=== PATIENT | male | born 1975 | race Caucasian/White ===

== ENCOUNTER 2023-11-10 08:03 | Emergency (ER) | payer OTHER, SELFPAY ==
--- NOTE | 2023-11-10 08:08 | ED.URI ---
HPI - URI/Sore Throat General Chief Complaint: Upper Respiratory Infection Stated Complaint: sinus infection Time Seen by Provider: 11/10/23 08:08 Source: patient Mode of arrival: ambulatory Limitations: no limitations History of Present Illness HPI Narrative: Nemesio is a 48-year-old male patient presenting to the clinic today with complaints of possible sinus infection x2 days. He reports he is has green nasal drainage, cough, congestion, headache, sinus pressure, body aches, and feeling feverish. He denies any chest pain or shortness of breath. He currently works as a teacher at [employer] MD elicited complaint: fever, cough, rhinorrhea, nasal congestion and sinus pain Related Data Home Medications Medication Instructions Recorded Confirmed cetirizine 10 mg capsule (Zyrtec) 10 mg PO DAILY 03/30/22 11/10/23 Allergies Allergy/AdvReac Type Severity Reaction Status Date / Time amoxicillin Allergy Unknown Unknown Verified 11/10/23 08:16 citalopram [From Celexa] AdvReac Mild Insomnia Verified 11/10/23 08:16 Review of Systems Review of Systems: Pertinent positives per HPI. Patient denies any rash, visual changes, dizziness, shortness of breath, chest pain, palpitations, nausea, vomiting, diarrhea, constipation, abdominal pain, or any urinary issues. 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 There is no relevant family history pertinent to the patient complaint. Exam Narrative: General: Well-developed, well nourished, in no apparent distress Head: Normocephalic, atraumatic Eyes: Pupils equally round and reactive to light bilaterally, EOM intact, sclera and conjunctive clear, no discharge, lids normal Ears: TMs intact and congested, ear canals clear, no drainage, grossly hearing normal. Nose: Nares patent, clear nasal discharge, no inflammation, no sinus tenderness. Mouth: Oral pharynx without lesions or masses, good dentition, MMM. Neck: Supple, trachea midline, no enlargement of anterior or posterior cervical nodes, no thyroid masses or goiter palpable. Cardio: Regular rate and rhythm, s1 and s2 normal, no murmur appreciated. Resp: Clear to auscultation bilaterally, no rhonchi, rales, wheezing or rubs Course Course Emergency Course: Portions of this record may have been created with voice recognition software. Level of Care: Express Care Visit Vital Signs Vital signs: Vital Signs Temperature 37.1 C 11/10/23 08:15 Pulse Rate 80 11/10/23 08:15 Respiratory Rate 18 11/10/23 08:15 Blood Pressure 143/85 H 11/10/23 08:15 Pulse Oximetry 100 11/10/23 08:15 Oxygen Delivery Room Air 11/10/23 08:15 Temperature 37.1 C 11/10/23 08:15 Pulse Rate 80 11/10/23 08:15 Respiratory Rate 18 11/10/23 08:15 Blood Pressure 143/85 H 11/10/23 08:15 Pulse Oximetry 100 11/10/23 08:15 Oxygen Delivery Room Air 11/10/23 08:15 Vital signs reviewed MDM - URI/Sore Throat MDM Narrative Medical decision making narrative:
[2023-11-10 08:15] VITALS: BP 143/85; PULSE 80; RESP 18; TEMP 37.1; O2SAT 100
== END 2023-11-10 08:32 | disposition home or self-care (01) ==
PROVIDERS: Emergency Provider Nurse Practitioner Family
DX: U07.1 COVID-19 (principal); F17.220 Nicotine dependence, chewing tobacco, uncomplicated; E78.5 Hyperlipidemia, unspecified; K21.9 Gastro-esophageal reflux disease without esophagitis
CPT/HCPCS: 87426; 99212; G0463

== ENCOUNTER 2023-12-05 02:17 | Day surgery (SDC) | payer OTHER, SELFPAY ==
[2023-11-13 13:41] VITALS: BMI 29.4
[2023-12-05 06:55] VITALS: BP 131/83; PULSE 78; RESP 16; TEMP 36.3; O2SAT 99; BMI 29.2
[2023-12-05] MEDS: LACTATED RINGERS 1,000 ML 150 ML IV CONT (07:21)
--- NOTE | 2023-12-05 07:36 | P.HP_ITS ---
History of Present Illness History of Present Illness Consent: Risks, benefits, and alternatives have been discussed and questions answered. Patient agrees to proceed with procedure. Chief complaint: neoplasm screening Narrative: Nemesio Blue is a 48 year old male here for screening colonoscopy, had one in his 20's because of hemorrhoids Review of Systems Review of Systems: All systems reviewed & are unremarkable except as noted in HPI and below PMFSH Past Medical History Medical History (Updated 12/05/23 @ 07:39 by Emerson Ornelas MD) Anxiety Colon cancer screening Depression Dyslipidemia GERD (gastroesophageal reflux disease) NICOLA (obstructive sleep apnea) Seasonal allergies Surgical History Surgical History History of appendectomy (1997) Family History Family History Father Heart disease Social History Social History Years smoked: 30 Smoking status: Never smoker Tobacco type: smokeless tobacco Smokeless tobacco user: chewing tobacco Alcohol intake: current Drinks per week: 5 Alcohol use details: beer Substance use: never Substance use type: does not use Living arrangements: with family Occupation/Education: occupation 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[id number] Spiritual care concerns: No Meds Home Medications and Allergies Home Medications Medication Instructions Recorded Confirmed Type cetirizine 10 mg capsule (Zyrtec) 10 mg PO DAILY 03/30/22 12/05/23 History pantoprazole 40 mg tablet,delayed 40 mg PO QAM #90 tabs 10/08/23 12/05/23 Rx release (Protonix) paroxetine HCl 20 mg tablet 20 mg PO DAILY #90 tabs 10/08/23 12/05/23 Rx Allergies Allergy/AdvReac Type Severity Reaction Status Date / Time amoxicillin Allergy Unknown Unknown Verified 12/05/23 07:03 citalopram [From Celexa] AdvReac Mild Insomnia Verified 12/05/23 07:03 Vital Signs Vital Signs - 24 hr 12/05/23 06:55 Temperature 97.3 F L Pulse Rate 78 Respiratory Rate 16 Blood Pressure 131/83 Pulse Oximetry 99 Oxygen Delivery Room Air Exam Const: General: comfortable and no acute distress HENMT: Face/Nose/Sinus: Normal nares present Eyes: General: appearance normal, both eyes and all related structures Neck: Neck: no JVD Resp: Auscultation: clear to auscultation bilaterally Cardio: Rate: regular rate Rhythm: regular rhythm GI: Inspection: non-distended GI Palp: Yes Soft to palpation Skin: General skin exam: normal color Neuro: General: gait normal Speech: normal speech Extrem: General: normal to inspection Psych: Mental Status: mental status grossly normal Assessment and Plan Assessment and plan (1) Colon cancer screening: Code(s): Z12.11 - Encounter for screening for malignant neoplasm of colon Status: Acute Assessment and Plan: colonoscopy
--- NOTE | 2023-12-05 07:44 | P.PNAN_ITS ---
Anes - Initial Pre Proc Eval Procedure: Operation Date: 12/05/23 08:00 Proposed Procedures p Screening Colonoscopy - Emerson Ornelas MD Date/Time: 12/05/23 07:44 Surgeon: Emerson Ornelas MD Pre Op Diagnosis: neoplasm screening Patient Data Age: 48 Gender: M Height: 1.78 m Weight: 92.5 kg Last Vital Signs Temp 97.3 F L 12/05/23 06:55 Pulse 78 12/05/23 06:55 Resp 16 12/05/23 06:55 BP 131/83 12/05/23 06:55 Pulse Ox 99 12/05/23 06:55 O2 Del Method Room Air 12/05/23 06:55 Allergies Allergy/AdvReac Type Severity Reaction Status Date / Time amoxicillin Allergy Unknown Unknown Verified 12/05/23 07:03 citalopram [From Celexa] AdvReac Mild Insomnia Verified 12/05/23 07:03 Home Medications Medication Instructions Recorded Confirmed Type cetirizine 10 mg capsule (Zyrtec) 10 mg PO DAILY 03/30/22 12/05/23 History pantoprazole 40 mg tablet,delayed 40 mg PO QAM #90 tabs 10/08/23 12/05/23 Rx release (Protonix) paroxetine HCl 20 mg tablet 20 mg PO DAILY #90 tabs 10/08/23 12/05/23 Rx Patient hx anesthesia problems: none Family hx anesthesia problems: none Results Review: All pre-operative results and documents have been reviewed as part of the pre- operative evaluation. ON LICENSE OF [facility] Past Medical History Medical History Anxiety Colon cancer screening Depression Dyslipidemia GERD (gastroesophageal reflux disease) NICOLA (obstructive sleep apnea) Seasonal allergies Surgical History Surgical History History of appendectomy (1997) Family History Family History Father Heart disease Social History Social History Years smoked: 30 Smoking status: Never smoker Tobacco type: smokeless tobacco Smokeless tobacco user: chewing tobacco Alcohol intake: current Drinks per week: 5 Alcohol use details: beer Substance use: never Substance use type: does not use Living arrangements: with family Occupation/Education: occupation 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 NICOLA, on CPAP, mod per pt. Informed Consent: The patient's anesthetic plan and its attendant risks and benefits were discussed with the patient/family/POA. Questions were solicited and answers provided to the satisfaction of the patient/family/POA.
--- NOTE | 2023-12-05 08:03 | SUR.OPER ---
Transverse colon polypectomy x1 with unretrievable polyp. Dr. Mack notified and aware of unretrieved transvese colon polyp.
[2023-12-05 08:05] VITALS: BP 129/83; PULSE 76; RESP 20; O2SAT 98
[2023-12-05 08:15] VITALS: BP 123/83; PULSE 76; RESP 17; O2SAT 98
[2023-12-05 08:25] VITALS: BP 133/78; PULSE 66; RESP 17; O2SAT 97
== END 2023-12-05 08:36 | disposition home or self-care (01) ==
PROVIDERS: PCP Nurse Practitioner Family; Referring Provider Nurse Practitioner Family; Visit Provider Internal Medicine Gastroenterology
PROC: 0DJD8ZZ Inspection of Lower Intestinal Tract, Via Natural or Artificial Opening Endoscopic (ICD-10-PCS; CPT 45378; principal; 2023-12-05 08:00)
DX: Z12.11 Encounter for screening for malignant neoplasm of colon (principal); K63.5 Polyp of colon; K64.8 Other hemorrhoids; E78.5 Hyperlipidemia, unspecified; K21.9 Gastro-esophageal reflux disease without esophagitis; G47.33 Obstructive sleep apnea (adult) (pediatric); F41.9 Anxiety disorder, unspecified; F32.A Depression, unspecified; F17.220 Nicotine dependence, chewing tobacco, uncomplicated
CPT/HCPCS: 45385; J2001; J2704; J7120